=== PATIENT | female | born 1980 ===

== ENCOUNTER 2016-04-16 20:35 | Emergency (ER) | payer MEDICAID ==
[2016-04-16] MEDS ORDERED: IOPAMIDOL 300 (61%) 150 ML VIAL IV ONE (20:36)
[2016-04-16 22:42] LABS: SPECIFIC GRAVITY 1.015 (1.001-1.030); URINE BILIRUBIN NEGATIVE (NEGATIVE); URINE BLOOD TRACE (NEGATIVE); URINE GLUCOSE (UA) NEGATIVE (NEGATIVE); URINE LEUKOCYTE ESTERASE NEGATIVE (NEGATIVE); URINE NITRITE NEGATIVE (NEGATIVE); URINE PROTEIN NEGATIVE (NEGATIVE); URINE UROBILINOGEN NORMAL (0-1 mg/dl)
[2016-04-16 22:58] LABS: HCG,QUALITATIVE URINE NEGATIVE
[2016-04-16 23:02] LABS: URINE APPEARANCE CLEAR; URINE COLOR YELLOW
[2016-04-16] MEDS ORDERED: ONDANSETRON 4 MG/2ML 2 ML VIAL ONE (23:02)
[2016-04-16] MEDS ORDERED: SODIUM CHLORIDE 0.9% 1,000 ML ONE (23:02)
[2016-04-16 23:04] LABS: URINE BACTERIA 1+; URINE RBC 0-2 /hpf; URINE WBC 0-2 /hpf
[2016-04-16 23:10] LABS: ABSOLUTE NEUTROPHIL COUNT 5.8 K/mm3 (1.8-7.7); BASO % 0.4 % (0.2-1.0); EOS # 0.3 (0.0-0.5); EOS % 2.9 % (0.9-2.9); HEMATOCRIT 36.5 % (37.0-47.0); HEMOGLOBIN 10.9 gm/l (12.0-16.0); IMM NEUT% 0.3 % (0-1); LYMPH # 2.3 (1.0-4.8); LYMPH % 25.1 % (15-45); MEAN CORPUSCULAR HEMOGLOBIN 22.1 pg (27.0-31.0); MEAN CORPUSCULAR HGB CONC 29.9 g/dl (33.0-37.0); MEAN PLATELET VOLUME 10.8 fl (7.4-10.4); MONO # 0.7 (0.0-0.8); MONO % 7.3 % (4-12); PLATELET COUNT 185 K/mm3 (130-400)
[2016-04-16 23:28] LABS: ALB/GLOB RATIO 1.3 (>1.0); ALBUMIN 3.8 gm/dL (3.5-5.7); CALCIUM 9.2 mg/dL (8.6-10.3)
[2016-04-17] MEDS ORDERED: KETOROLAC TROMETHAMINE 30 MG/ML 1 ML VIAL ONE (00:09)
--- NOTE | 2016-04-17 08:27 | CT ---
Exam Type: ABD/PELVIS W/ CON Date and Time: 04/16/2016 10:43 PM Clinical information: Left lower quadrant pain for one day. Comparison: Abdominal ultrasound 10/21/2010 Technique: Contiguous axial 4 mm images were obtained from the lung bases through the pelvis after the uneventful IV administration of 125 cc of [id number]. Sagittal and coronal reformations with high resolution lung algorithm images were also obtained at this time. CT DI: 12.7 DLP 683.5 FINDINGS: Lung base :No abnormality is identified at the lung bases. Visualized heart:There is no pericardial effusion. LIVER: High density blush is identified within the lateral segment left lobe of the liver on image 14 measuring approximate 8 mm. And could relate to a flash filling hemangioma or other arterial enhancing lesion. Diffuse fatty infiltration. BILE DUCTS: normal caliber. GALLBLADDER: Adherent stone or polyp is present. PANCREAS: within normal limits. SPLEEN: within normal limits. ADRENALS: within normal limits. KIDNEYS: within normal limits. Stomach and small BOWEL: Normal caliber. Large bowel: Air and stool are noted within the large bowel. Appendix is normal. LYMPH NODES: No enlarged mesenteric lymph nodes. PERITONEUM: no ascites or free air, no fluid collection. VESSELS: within normal limits RETROPERITONEUM: within normal limits. ABDOMINAL WALL: Diffuse fat stranding is noted surrounding the superficial aspect of the abdominal musculature extending across much of the body. Findings could relate to the patient's pain. Bladder: Decompressed, otherwise normal. Uterus and adnexa: Uterine fibroid disease is suspected. Bilateral tubal ligation clips. BONES: within normal limits. IMPRESSION: Possible inflammatory stranding along superficial aspect of the abdominal musculature extending along most of the body wall. This could be the source of the patient's pain. Otherwise no acute intra-abdominal process is noted. High density blush within the lateral segment left lobe of the liver, which could relate to a flash filling hemangioma or other arterial enhancing lesion. Other incidental findings as above. Preliminary report was provided by [employer] at approximately 2334 hours on 04/16/2016.
== END 2016-04-17 00:17 | disposition home or self-care (01) ==
LOC: ED 20:35
DX: R10.12 Left upper quadrant pain (principal); R11.0 Nausea
CPT/HCPCS: 81025; 85025; 80053; 81001; 74177; 96375; 99284 ×2; 96374; 96361; J1885; J2405; J7030; Q9967